=== PATIENT | male | born 1950 | race Caucasian/White ===

== ENCOUNTER 2020-03-05 16:00 | Emergency (ER) | payer OTHER ==
[~2020-03-05] VITALS: Ht 175.3 cm; Wt 80.7 kg
[~2020-03-05 16:00] MED LIST: ATOR20 PO; INSLIS75I SC; MUSCLE RELAXER
[2020-03-05] MEDS ORDERED: Zovirax800 MG PO (16:34)
[2020-03-05] MEDS ORDERED: CEPH500 PO (16:34)
== END 2020-03-05 16:55 | disposition home or self-care (01) ==
LOC: ER 16:00
DX: A46 Erysipelas (principal); F17.210 Nicotine dependence, cigarettes, uncomplicated
CPT/HCPCS: 99283; A9270-GY

== ENCOUNTER → 2021-12-17 | Outpatient (CLI) | payer OTHER ==
[~2021-12-17] MED LIST changes: +CARV3.125 PO; +CEPH500 PO; +Lisinopril2.5 MG PO; +PRAV20 PO; +PRAVASTATIN SOD20 MG PO; +SPIR25 PO; +XARELTO20 MG PO; +Zovirax800 MG PO
[2021-12-17 13:48] LABS: BASOPHILS ABSOLUTE AUTO 0.07 K/mm3 (0.00-0.23); BASOPHILS PERCENT AUTO 1 % (0-2); EOSINOPHILS PERCENT AUTO 1 % (0-6); Hematocrit 36.2 % (37.0-53.0); Hemoglobin 12.8 g/dL (13.5-17.5); IMMATURE GRAN ABSOLUTE AUTO 0.11 K/mm3 (0.00-0.10); IMMATURE GRAN PERCENT AUTO 1 % (0-1); LYMPHOCYTES ABSOLUTE AUTO 0.91 K/mm3 (0.84-5.20); LYMPHOCYTES PERCENT AUTO 10 % (21-46); MONOCYTES ABSOLUTE AUTO 0.94 K/mm3 (0.16-1.47); MONOCYTES PERCENT AUTO 10 % (4-13); Mean Corpuscular HGB 28.4 pg (26.0-34.0); Mean Corpuscular HGB Conc 35.4 g/dL (31.5-36.5); Mean Corpuscular Volume 80 fL (80-100); Mean Platelet Volume 9.1 fL (9.1-12.4); NEUTROPHILS ABSOLUTE AUTO 6.89 K/mm3 (1.96-9.15); NEUTROPHILS PERCENT AUTO 76 % (41-73); Platelet Count 321 K/mm3 (150-400); RDW Coefficient Variation 13.3 % (11.7-14.2); RDW Standard Deviation 37.9 fL (35.1-46.3); Red Blood Cell Count 4.51 M/mm3 (4.30-5.90); White Blood Cell Count 9.02 K/mm3 (4.00-11.30)
[2021-12-17 14:06] LABS: Albumin, Blood 3.2 g/dL (3.4-5.0); Albumin/Globulin Ratio 0.8 (0.8-1.8); Bilirubin, Total 1.4 mg/dL (0.1-1.0); Bun/Creatinine Ratio 12.9 (12.0-20.0); Calcium, Blood 8.3 mg/dL (8.5-10.1); Creatinine, Blood 1.4 mg/dL (0.60-1.20); Globulin, Blood 3.8 g/dL (2.2-4.0); Potassium, Blood 4.9 mmol/L (3.5-5.5)
== END | disposition home or self-care (01) ==
LOC: LAB SHORT 13:38 → LAB 13:38
PROVIDERS: Physician Assistant
DX: R06.00 Dyspnea, unspecified (principal)
CPT/HCPCS: 80053; 84484; 85025; 85379

== ENCOUNTER 2022-03-18 14:53 | Emergency (ER) | payer OTHER ==
[~2022-03-18] VITALS: Ht 175.3 cm; Wt 72.6 kg
[2022-03-18 15:19] LABS: BASOPHILS ABSOLUTE AUTO 0.07 K/mm3 (0.00-0.23); BASOPHILS PERCENT AUTO 1 % (0-2); EOSINOPHILS ABSOLUTE AUTO 0.12 K/mm3 (0.00-0.68); EOSINOPHILS PERCENT AUTO 2 % (0-6); Hematocrit 45.2 % (37.0-53.0); Hemoglobin 15.2 g/dL (13.5-17.5); IMMATURE GRAN ABSOLUTE AUTO 0.01 K/mm3 (0.00-0.10); IMMATURE GRAN PERCENT AUTO 0 % (0-1); LYMPHOCYTES ABSOLUTE AUTO 1.44 K/mm3 (0.84-5.20); LYMPHOCYTES PERCENT AUTO 28 % (21-46); MONOCYTES ABSOLUTE AUTO 0.54 K/mm3 (0.16-1.47); MONOCYTES PERCENT AUTO 11 % (4-13); Mean Corpuscular HGB 27.2 pg (26.0-34.0); Mean Corpuscular HGB Conc 33.6 g/dL (31.5-36.5); Mean Corpuscular Volume 81 fL (80-100); Mean Platelet Volume 10.3 fL (9.1-12.4); NEUTROPHILS ABSOLUTE AUTO 2.93 K/mm3 (1.96-9.15); NEUTROPHILS PERCENT AUTO 57 % (41-73); Platelet Count 198 K/mm3 (150-400); RDW Coefficient Variation 22.5 % (11.7-14.2); Red Blood Cell Count 5.58 M/mm3 (4.30-5.90); White Blood Cell Count 5.11 K/mm3 (4.00-11.30)
[2022-03-18 15:47] LABS: Albumin, Blood 3.2 g/dL (3.4-5.0); Albumin/Globulin Ratio 0.8 (0.8-1.8); Bilirubin, Total 4.3 mg/dL (0.1-1.0); Bun/Creatinine Ratio 14.8 (12.0-20.0); Calcium, Blood 9.4 mg/dL (8.5-10.1); Creatinine, Blood 1.22 mg/dL (0.60-1.20); Globulin, Blood 4.2 g/dL (2.2-4.0); Potassium, Blood 3.6 mmol/L (3.5-5.5); Total Protein, Blood 7.4 g/dL (6.4-8.2)
[2022-03-18] MEDS ORDERED: FURO20 PO (18:11)
== END 2022-03-18 18:30 | disposition home or self-care (01) ==
LOC: ER 14:53
PROVIDERS: Emergency Medicine; Physician Assistant
DX: I11.0 Hypertensive heart disease with heart failure (principal); I50.9 Heart failure, unspecified; R17 Unspecified jaundice; E78.5 Hyperlipidemia, unspecified; Z86.73 Personal history of transient ischemic attack (TIA), and cerebral infarction without residual deficits; Z79.899 Other long term (current) drug therapy; Z87.891 Personal history of nicotine dependence; Z79.01 Long term (current) use of anticoagulants
CPT/HCPCS: 71045; 76705; 80053; 83690; 83880; 84484; 85025; 93005; 93010; 99285-25

== ENCOUNTER 2022-03-25 18:11 | Inpatient (IN) | payer OTHER ==
[~2022-03-25] VITALS: Ht 175.3 cm; Wt 69.7 kg
[~2022-03-25 18:11] MED LIST changes: +FURO20 PO; -PRAV20 PO; +PRAVASTATIN SOD40 MG PO
[2022-03-25 19:05] LABS: BASOPHILS ABSOLUTE AUTO 0.08 K/mm3 (0.00-0.23); BASOPHILS PERCENT AUTO 2 % (0-2); EOSINOPHILS ABSOLUTE AUTO 0.15 K/mm3 (0.00-0.68); EOSINOPHILS PERCENT AUTO 3 % (0-6); Hematocrit 44.3 % (37.0-53.0); Hemoglobin 15.2 g/dL (13.5-17.5); IMMATURE GRAN ABSOLUTE AUTO 0.01 K/mm3 (0.00-0.10); IMMATURE GRAN PERCENT AUTO 0 % (0-1); LYMPHOCYTES ABSOLUTE AUTO 1.43 K/mm3 (0.84-5.20); LYMPHOCYTES PERCENT AUTO 32 % (21-46); MONOCYTES ABSOLUTE AUTO 0.48 K/mm3 (0.16-1.47); MONOCYTES PERCENT AUTO 11 % (4-13); Mean Corpuscular HGB 27.3 pg (26.0-34.0); Mean Corpuscular HGB Conc 34.3 g/dL (31.5-36.5); Mean Corpuscular Volume 80 fL (80-100); Mean Platelet Volume 9.8 fL (9.1-12.4); NEUTROPHILS ABSOLUTE AUTO 2.33 K/mm3 (1.96-9.15); NEUTROPHILS PERCENT AUTO 52 % (41-73); Platelet Count 120 K/mm3 (150-400); RDW Coefficient Variation 22.7 % (11.7-14.2); RDW Standard Deviation 64.7 fL (35.1-46.3); Red Blood Cell Count 5.56 M/mm3 (4.30-5.90); White Blood Cell Count 4.48 K/mm3 (4.00-11.30)
[2022-03-25 19:33] LABS: Albumin, Blood 3.2 g/dL (3.4-5.0); Albumin/Globulin Ratio 0.8 (0.8-1.8); Bun/Creatinine Ratio 16.4 (12.0-20.0); Calcium, Blood 9.3 mg/dL (8.5-10.1); Creatinine, Blood 1.1 mg/dL (0.60-1.20); Globulin, Blood 3.8 g/dL (2.2-4.0); Magnesium, Blood 1.9 mg/dL (1.6-2.4); Potassium, Blood 3.1 mmol/L (3.5-5.5)
[2022-03-26 02:06] LABS: BASOPHILS ABSOLUTE AUTO 0.08 K/mm3 (0.00-0.23); BASOPHILS PERCENT AUTO 2 % (0-2); EOSINOPHILS ABSOLUTE AUTO 0.17 K/mm3 (0.00-0.68); EOSINOPHILS PERCENT AUTO 4 % (0-6); Hematocrit 44.5 % (37.0-53.0); Hemoglobin 15.2 g/dL (13.5-17.5); IMMATURE GRAN ABSOLUTE AUTO 0.02 K/mm3 (0.00-0.10); IMMATURE GRAN PERCENT AUTO 1 % (0-1); LYMPHOCYTES ABSOLUTE AUTO 1.23 K/mm3 (0.84-5.20); LYMPHOCYTES PERCENT AUTO 28 % (21-46); MONOCYTES ABSOLUTE AUTO 0.41 K/mm3 (0.16-1.47); MONOCYTES PERCENT AUTO 9 % (4-13); Mean Corpuscular HGB 27.4 pg (26.0-34.0); Mean Corpuscular HGB Conc 34.2 g/dL (31.5-36.5); Mean Corpuscular Volume 80 fL (80-100); Mean Platelet Volume 10.3 fL (9.1-12.4); NEUTROPHILS ABSOLUTE AUTO 2.48 K/mm3 (1.96-9.15); NEUTROPHILS PERCENT AUTO 57 % (41-73); Platelet Count 114 K/mm3 (150-400); RDW Coefficient Variation 22.6 % (11.7-14.2); RDW Standard Deviation 65.1 fL (35.1-46.3); Red Blood Cell Count 5.54 M/mm3 (4.30-5.90); White Blood Cell Count 4.39 K/mm3 (4.00-11.30)
[2022-03-26 02:25] LABS: Albumin/Globulin Ratio 0.8 (0.8-1.8); Bilirubin, Total 4.1 mg/dL (0.1-1.0); Bun/Creatinine Ratio 15.5 (12.0-20.0); Calcium, Blood 8.9 mg/dL (8.5-10.1); Creatinine, Blood 1.16 mg/dL (0.60-1.20); Globulin, Blood 3.6 g/dL (2.2-4.0); Potassium, Blood 3.2 mmol/L (3.5-5.5); Total Protein, Blood 6.6 g/dL (6.4-8.2)
--- NOTE | 2022-03-26 03:53 | NUR ---
PATIENT IS A&OX4, OOB INDEPENDENTLY IN ROOM TO BATHROOM. SOB WITH MINIMAL EXERTION OR CONVERSATION. URINE IS DARK ORANGE/BROWN. STATES LITTLE APPETITE OVER LAST FEW MONTHS DUE TO CHANGE IN TASTE AND LATELY SOB WHEN EATING. PATIENT WAS TAKEN OFF MAJORITY OF HIS MEDICATIONS BY HIS PCP DUE TO HYPOTENSION. STATES ONLY TWO HE IS TAKING AT HOME ARE LASIX AND 20MG XARELTO ONCE DAILY. NO COMPLAINTS OF CHEST PAIN OR PRESSURE. TRACE GENERALIZED EDEMA WITH DISTENDED NON PITTING ABDOMEN AND 2-3+ ANKLES AND FEET. PATIENT ASKING ABOUT REASON FOR NPO STATUS. TROPONINS OVERNIGHT WERE 248 IN ER, 260 AT MIDNIGHT AND 249 TWO HOURS LATER.
--- NOTE | 2022-03-26 08:00 | NUR ---
pt laying in bed asking about coffee but npo, call to Dr. Gonzales recieved diet order, he will review pt before I give po meds as he is hypotensive, pt is a/ox3, pleasant and cooperative with care, follows commands well, denies pain, states he is fine as long as he doesn't move, but becomes winded with any activity, currently on r/a, lungs are a bit wet, course, fine crackles in bases, hrr, tele in place running st with pac's per monitor, see strip, 2+edema noted to b/l le, btx4, abd flat soft nontender, voids without diff, skin jaundiced, no open areas, maew, up indep, pela, call light in reach.
[2022-03-26 11:40] LABS: International Normalized Ratio 2.08; Prothrombin Time Results 20.8 Sec (9.7-11.5)
[2022-03-26] MEDS ORDERED: FUROSEMIDE20 MG PO (13:13)
--- NOTE | 2022-03-26 18:41 | NUR ---
pt has been sob, helps to tripod, otherwise is struggling to breath, b/p 89/75 this evening, updated Dr. Chandra as he has lasix and aldactone due, he said to go ahead and give unless sbp is 85, rechecked after repositioning him, sbp was 102. son in room visiting, call light in reach.
[2022-03-26 20:41] LABS: International Normalized Ratio 2.55
[2022-03-26 20:44] LABS: Prothrombin Time Results 25.2 Sec (9.7-11.5)
[2022-03-27 05:47] LABS: BASOPHILS ABSOLUTE AUTO 0.11 K/mm3 (0.00-0.23); BASOPHILS PERCENT AUTO 3 % (0-2); EOSINOPHILS PERCENT AUTO 2 % (0-6); Hematocrit 46.7 % (37.0-53.0); Hemoglobin 15.7 g/dL (13.5-17.5); IMMATURE GRAN ABSOLUTE AUTO 0.02 K/mm3 (0.00-0.10); IMMATURE GRAN PERCENT AUTO 1 % (0-1); LYMPHOCYTES PERCENT AUTO 32 % (21-46); MONOCYTES PERCENT AUTO 11 % (4-13); Mean Corpuscular HGB 27.4 pg (26.0-34.0); Mean Corpuscular HGB Conc 33.6 g/dL (31.5-36.5); Mean Corpuscular Volume 81 fL (80-100); Mean Platelet Volume 9.8 fL (9.1-12.4); NEUTROPHILS ABSOLUTE AUTO 2.31 K/mm3 (1.96-9.15); NEUTROPHILS PERCENT AUTO 52 % (41-73); Platelet Count 119 K/mm3 (150-400); RDW Coefficient Variation 23.3 % (11.7-14.2); RDW Standard Deviation 66.9 fL (35.1-46.3); Red Blood Cell Count 5.74 M/mm3 (4.30-5.90); White Blood Cell Count 4.44 K/mm3 (4.00-11.30)
[2022-03-27 06:00] LABS: International Normalized Ratio 2.39; Prothrombin Time Results 23.7 Sec (9.7-11.5)
[2022-03-27 06:07] LABS: Albumin, Blood 3.4 g/dL (3.4-5.0); Albumin/Globulin Ratio 0.9 (0.8-1.8); Bun/Creatinine Ratio 16.9 (12.0-20.0); Calcium, Blood 9.4 mg/dL (8.5-10.1); Creatinine, Blood 1.18 mg/dL (0.60-1.20); Globulin, Blood 3.7 g/dL (2.2-4.0); Potassium, Blood 4.1 mmol/L (3.5-5.5); Total Protein, Blood 7.1 g/dL (6.4-8.2)
--- NOTE | 2022-03-27 07:39 | NUR ---
PATIENT HAD A FITFULL REST OVERNIGHT. HE WAS VERY UNCOMFORTABLE DUE TO HIS DIFFICULTY BREATHING AND DISTENDED ABDOMEN. MD WAS NOTIFIED AND IV BENEDRYL WAS ORDERED TO HELP PATIENT REST. O2 SATURATIONS REMAINED BETWEEN 88 - 93% ON ROOM AIR, BLOOD PRESSURES REMAINED JUST ABOVE 100 UNTIL AROUND 0530 WHEN IT WAS 98/50. TELE : A FIB/SR 90'S TO LOW 100'S. PATIENT IS ANXIOUS FOR THORACENTESIS ON MONDAY. HEPARIN REMAINS UNSTARTED PER PHARMACY ORDER PATIENTS PT WAS STILL TOO HIGH. AWAITING THEIR ORDER TO START
--- NOTE | 2022-03-27 08:00 | NUR ---
pt laying in bed with eyes closed, wakes easily, not as sob as he was last night, lungs are course t/o, resp even and unlabored at rest, gets sob with activity, states he slept like a log last night, a/ox3, pleasant and cooperative with care, follows commands well, denies pain, currently on r/a, no cough noted, hrr, heart sounds are distant, piv to rac site is clear and patent, bt x4, hypoactive, voids via urinal, skin c/w/d frail, maew, but very weak, roya, call light in reach.
--- NOTE | 2022-03-27 11:06 | NUR ---
Spoke with Dr Gonzales prior to Pt visit. Pt may benefit from goals of care discussion including considering hospice. Pt resting in bed and is A&OX4. Pt reports dyspnea with exertion and speaking. Pt becomes dyspneic during visit as evidenced by work of breathing and ability to only speak in 1-2 word sentences. Pt denies pain at this time. Reviewed plan of care with Pt. Engaged in therapeutic discussion regarding goals of care. Pt reports living at home with his son in [facility]. He also reports having 2 daughter, one lives in [place] and the other in [place]. Pt reports at baseline is independent of his ADLs. Pt reports losing his spouse 5 years ago to cancer. Gentle education on disease process including trajectory. Discussed options including considering hospice with Pt confirming understanding stating his was on hospice. Also discussed [facility]. Pt does not engaged much in conversation as he is focused on his dyspnea. He reports plan to discuss options further with his son. Pt also agreeable to take POLST home and discussed with son. Received verbal permission from Pt to call his son Nathaniel to relay conversation that took place. Ended visit to allow Pt to rest. Attempted to call Pt's son Nathaniel. Left message on voicemail with request for a return phone call. Palliative Care will remain available.
--- NOTE | 2022-03-27 11:41 | NUR ---
Late Entry from previous visit note. Received return call from Pt's son Nathaniel. Relayed conversation that took place with Pt. Reviewed current plan of care. Nathaniel expresses appreciation and reports no other concerns at this time.
--- NOTE | 2022-03-27 18:12 | NUR ---
pt resting in bed most of the day, is breathing some easier than yesterday, sons in room, b/p remains soft. plan for thora tomorrow. call light in reach.
[2022-03-28 04:43] LABS: BASOPHILS ABSOLUTE AUTO 0.11 K/mm3 (0.00-0.23); BASOPHILS PERCENT AUTO 2 % (0-2); EOSINOPHILS PERCENT AUTO 4 % (0-6); Hematocrit 43.7 % (37.0-53.0); Hemoglobin 14.8 g/dL (13.5-17.5); IMMATURE GRAN ABSOLUTE AUTO 0.02 K/mm3 (0.00-0.10); IMMATURE GRAN PERCENT AUTO 0 % (0-1); LYMPHOCYTES ABSOLUTE AUTO 1.55 K/mm3 (0.84-5.20); LYMPHOCYTES PERCENT AUTO 32 % (21-46); MONOCYTES PERCENT AUTO 10 % (4-13); Mean Corpuscular HGB 27.6 pg (26.0-34.0); Mean Corpuscular HGB Conc 33.9 g/dL (31.5-36.5); Mean Corpuscular Volume 82 fL (80-100); Mean Platelet Volume 9.7 fL (9.1-12.4); NEUTROPHILS ABSOLUTE AUTO 2.48 K/mm3 (1.96-9.15); NEUTROPHILS PERCENT AUTO 51 % (41-73); Platelet Count 107 K/mm3 (150-400); RDW Coefficient Variation 23.1 % (11.7-14.2); RDW Standard Deviation 67.2 fL (35.1-46.3); Red Blood Cell Count 5.36 M/mm3 (4.30-5.90); White Blood Cell Count 4.86 K/mm3 (4.00-11.30)
[2022-03-28 05:00] LABS: Albumin, Blood 3.6 g/dL (3.4-5.0); Albumin/Globulin Ratio 1.2 (0.8-1.8); Bilirubin, Total 5.2 mg/dL (0.1-1.0); Bun/Creatinine Ratio 18.5 (12.0-20.0); Calcium, Blood 9.6 mg/dL (8.5-10.1); Creatinine, Blood 1.24 mg/dL (0.60-1.20); Globulin, Blood 3.1 g/dL (2.2-4.0); Potassium, Blood 4.2 mmol/L (3.5-5.5); Total Protein, Blood 6.7 g/dL (6.4-8.2)
[2022-03-28 05:03] LABS: International Normalized Ratio 2.2; Prothrombin Time Results 21.9 Sec (9.7-11.5)
--- NOTE | 2022-03-28 06:25 | NUR ---
SHIFT SUMMARY NO ACUTE CHANGES TO PT CONDITION. PT SLEPT MOST OF THE NIGHT. UP THIS AM TO BEDSIDE CHAIR AND THEN WENT BACK TO BED. PT HAS NO COMPLAINTS AT THIS TIME. CALL LIGHT IS WITHIN HIS REACH.
--- NOTE | 2022-03-28 08:00 | NUR ---
pt laying in bed awake a/ox3, pleasant and cooperative with care, follows commands well, denies pain, states he slept hard last night, lungs are a bit course, very dim on left base, resp even and unlabored at rest, periodically gets very sob, and panics because he can't cath his breath, sitting up helps, on r/a, sats are in the mid 's, hrr, runs sr to st per montior see strip, 2+ edema to b/l le, is some better today as he has мария hose in place, b/p in the 's, piv to rac site is clear and patent, btx4 hypoactive, voids without diff, skin is sallow, but intact, maew, up indep, roya, call light in reach.
[2022-03-28 14:07] LABS: International Normalized Ratio 1.83
[2022-03-28 14:42] LABS: Prothrombin Time Results 18.5 Sec (9.7-11.5)
--- NOTE | 2022-03-28 18:47 | NUR ---
pt had a unit of ffp for high inr, at recheck it was under 2 so radiology was notified and Dr. Dupont, had a thorensentesis, pt reports 1 liter was removed, he reports breathing much easier, and feels relief. v.s. in the 's, son in room with him, no further acute changes this shift, call light in reach.
--- NOTE | 2022-03-29 04:31 | NUR ---
SHIFT SUMMARY ADMITTED FOR CHF EXACERBATION. DNR CODE. FOUND TO HAVE BILAT PE'S. EF IS 15-20%. HYPOTENSION NOTED. TELEMETRY: NSR @ 73 BPM. PT IS A&O X4, ON RA. HE GOT ONE UNIT OF FFP ON PREVIOUS SHIFT. CARDIAC DIET. 1 ASSIST. 2+ BLE EDEMA. WE ARE DIURESING HIM. THORACENTESIS PERFORMED ON PREVIOUS SHIFT REMOVED 1 LITER OF FLUID.
[2022-03-29 04:41] LABS: BASOPHILS ABSOLUTE AUTO 0.09 K/mm3 (0.00-0.23); BASOPHILS PERCENT AUTO 2 % (0-2); EOSINOPHILS PERCENT AUTO 4 % (0-6); Hematocrit 41.9 % (37.0-53.0); Hemoglobin 14.1 g/dL (13.5-17.5); IMMATURE GRAN ABSOLUTE AUTO 0.03 K/mm3 (0.00-0.10); IMMATURE GRAN PERCENT AUTO 1 % (0-1); LYMPHOCYTES ABSOLUTE AUTO 1.24 K/mm3 (0.84-5.20); LYMPHOCYTES PERCENT AUTO 27 % (21-46); MONOCYTES ABSOLUTE AUTO 0.64 K/mm3 (0.16-1.47); MONOCYTES PERCENT AUTO 14 % (4-13); Mean Corpuscular HGB Conc 33.7 g/dL (31.5-36.5); Mean Corpuscular Volume 83 fL (80-100); Mean Platelet Volume 10.1 fL (9.1-12.4); NEUTROPHILS ABSOLUTE AUTO 2.38 K/mm3 (1.96-9.15); NEUTROPHILS PERCENT AUTO 52 % (41-73); Platelet Count 108 K/mm3 (150-400); RDW Coefficient Variation 23.6 % (11.7-14.2); RDW Standard Deviation 69.3 fL (35.1-46.3); Red Blood Cell Count 5.04 M/mm3 (4.30-5.90); White Blood Cell Count 4.58 K/mm3 (4.00-11.30)
[2022-03-29 04:55] LABS: International Normalized Ratio 1.92; Prothrombin Time Results 19.3 Sec (9.7-11.5)
[2022-03-29 05:10] LABS: Albumin, Blood 3.5 g/dL (3.4-5.0); Albumin/Globulin Ratio 1.2 (0.8-1.8); Bilirubin, Total 5.1 mg/dL (0.1-1.0); Bun/Creatinine Ratio 20.8 (12.0-20.0); Calcium, Blood 9.6 mg/dL (8.5-10.1); Creatinine, Blood 1.3 mg/dL (0.60-1.20); Globulin, Blood 2.8 g/dL (2.2-4.0); Magnesium, Blood 1.8 mg/dL (1.6-2.4); Potassium, Blood 4.2 mmol/L (3.5-5.5); Total Protein, Blood 6.3 g/dL (6.4-8.2)
[2022-03-29] MEDS ORDERED: AZIT250 PO (11:30)
[2022-03-29] MEDS ORDERED: CARV3.125 PO (11:33)
[2022-03-29] MEDS ORDERED: LISI5 PO (11:35)
[2022-03-29] MEDS ORDERED: POTA10T PO (11:36)
[2022-03-29] MEDS ORDERED: PRAV20 PO (11:37)
[2022-03-29] MEDS ORDERED: SPIR25 PO (11:38)
--- NOTE | 2022-03-29 14:16 | NUR ---
PT DISCHARGED HOME AT 1215 WITH ALL PAPERWORK REVIEWED AND EDUCATIONAL MATERIAL SENT WITH PT.NO DISTRESS NOTED. PT AOX4 AND COOPERATIVE OF ALL CARE. PT ABLE TO AMUBULATE INDEPENDENTLY. PT ESCORTED OUT VIA WHEEL CHAIR WITH ALL PERSONAL BELONGINGS VIA WHEEL CHAIR.
== END 2022-03-29 12:12 | disposition home health service (06) | DRG 291 ==
LOC: ER 18:11 → MEDS 18:12
PROVIDERS: Family Medicine; Hospitalist; Physician Assistant; ADMIT Internal Medicine
PROC: 0W993ZZ Drainage of Right Pleural Cavity, Percutaneous Approach (ICD-10-PCS; principal; 2022-03-28)
DX: I11.0 Hypertensive heart disease with heart failure (principal); I50.23 Acute on chronic systolic (congestive) heart failure; I24.8 Other forms of acute ischemic heart disease; Q21.1 Atrial septal defect; Z66 Do not resuscitate; E87.6 Hypokalemia; I95.9 Hypotension, unspecified; I25.10 Atherosclerotic heart disease of native coronary artery without angina pectoris; Z86.16 Personal history of COVID-19; E78.5 Hyperlipidemia, unspecified; J44.9 Chronic obstructive pulmonary disease, unspecified; I42.8 Other cardiomyopathies; Z86.73 Personal history of transient ischemic attack (TIA), and cerebral infarction without residual deficits; Z79.01 Long term (current) use of anticoagulants; Z79.899 Other long term (current) drug therapy; Z87.891 Personal history of nicotine dependence
CPT/HCPCS: 32555; 36415; 71045; 71046; 80053; 83735; 83880; 84484; 85025; 85610; 85730; 86900; 86901; 93005; 93010; 93306; 94640; 94664; 94762; 96374; 99285-25; A9270; J1200; J1940; J3430; P9046; P9059

== ENCOUNTER 2022-10-29 13:08 | Inpatient (IN) | payer OTHER ==
[~2022-10-29] VITALS: Ht 175.3 cm; Wt 64.5 kg
[~2022-10-29 13:08] MED LIST changes: +AZIT250 PO; +FUROSEMIDE20 MG PO; +LISI5 PO; +POTA10T PO; +PRAV20 PO
[2022-10-29 13:37] LABS: BASOPHILS ABSOLUTE AUTO 0.13 K/mm3 (0.00-0.23); BASOPHILS PERCENT AUTO 2 % (0-2); EOSINOPHILS PERCENT AUTO 12 % (0-6); Hematocrit 40.4 % (37.0-53.0); Hemoglobin 13.6 g/dL (13.5-17.5); IMMATURE GRAN ABSOLUTE AUTO 0.04 K/mm3 (0.00-0.10); IMMATURE GRAN PERCENT AUTO 1 % (0-1); LYMPHOCYTES ABSOLUTE AUTO 1.87 K/mm3 (0.84-5.20); LYMPHOCYTES PERCENT AUTO 24 % (21-46); MONOCYTES ABSOLUTE AUTO 1.02 K/mm3 (0.16-1.47); MONOCYTES PERCENT AUTO 13 % (4-13); Mean Corpuscular HGB 28.5 pg (26.0-34.0); Mean Corpuscular HGB Conc 33.7 g/dL (31.5-36.5); Mean Corpuscular Volume 85 fL (80-100); Mean Platelet Volume 9.3 fL (9.1-12.4); NEUTROPHILS ABSOLUTE AUTO 3.76 K/mm3 (1.96-9.15); NEUTROPHILS PERCENT AUTO 49 % (41-73); Platelet Count 143 K/mm3 (150-400); RDW Coefficient Variation 17.9 % (11.7-14.2); RDW Standard Deviation 53.2 fL (35.1-46.3); Red Blood Cell Count 4.77 M/mm3 (4.30-5.90); White Blood Cell Count 7.72 K/mm3 (4.00-11.30)
[2022-10-29 13:56] LABS: Albumin, Blood 2.9 g/dL (3.4-5.0); Albumin/Globulin Ratio 0.7 (0.8-1.8); Bilirubin, Total 3.8 mg/dL (0.1-1.0); Bun/Creatinine Ratio 21.7 (12.0-20.0); Creatinine, Blood 1.06 mg/dL (0.60-1.20); Globulin, Blood 4.3 g/dL (2.2-4.0); Potassium, Blood 4.5 mmol/L (3.5-5.5); Total Protein, Blood 7.2 g/dL (6.4-8.2)
[2022-10-29] MEDS ORDERED: LEVSOD25 PO (19:16)
[2022-10-29] MEDS ORDERED: IPRATROPIUM BRO30 ML NS (19:16)
[2022-10-29] MEDS ORDERED: FARXIGA10 MG PO (19:16)
--- NOTE | 2022-10-30 03:54 | NUR ---
PATIENT ARRIVED ON UNIT AT ABOUT 1999. AOX4. PLEASANT AND COOPERATIVE WITH CARE. 1 PERSON ASSIST. IV RIGHT AC. ROOM AIR. DNR. BLOOD PRESSURES HAVE BEEN RUNNING SOFT. ADMISSION PROCESS COMPLETED WITHOUT DIFFICULTY. PATIENT REFUSED SKIN ASSESSMENT OF LOWER BODY, SKIN ASSESSMENT OF UPPER BODY UNREMARKABLE. AFTER ADMISSION PROCESS PATIENT HAS BEEN ABLE TO SLEEP THROUGH REMAINDER OF SHIFT WITHOUT DIFFICULTY.
[2022-10-30 06:03] LABS: Hematocrit 39.7 % (37.0-53.0); Hemoglobin 13.9 g/dL (13.5-17.5); Mean Corpuscular HGB 28.9 pg (26.0-34.0); Mean Corpuscular Volume 83 fL (80-100); Mean Platelet Volume 8.6 fL (9.1-12.4); Platelet Count 144 K/mm3 (150-400); RDW Coefficient Variation 17.2 % (11.7-14.2); Red Blood Cell Count 4.81 M/mm3 (4.30-5.90); White Blood Cell Count 7.64 K/mm3 (4.00-11.30)
[2022-10-30 06:35] LABS: Bun/Creatinine Ratio 23.1 (12.0-20.0); Calcium, Blood 8.3 mg/dL (8.5-10.1); Creatinine, Blood 1.08 mg/dL (0.60-1.20); Free Thyroxine 1.33 ng/dL (0.70-1.60); Magnesium, Blood 1.8 mg/dL (1.6-2.4); Potassium, Blood 4.1 mmol/L (3.5-5.5); Thyroid Stimulating Hormone 4.16 uIU/mL (0.360-4.800)
--- NOTE | 2022-10-30 07:35 | NUR ---
INFORMED BY MANUFACTURING JOB TITLES OF BP OF 71/52 FOR PATIENT. UPON ASSESSMENT PATIENT WAS ASYMPTOMATIC. PT RECEIVED 500ML NS BOLUS THIS MORNING FOR SBP OF 85. DR ASHBY NOTIFIED OF FINDINGS. ORDERS TO CONTINUE TO MONITOR RECEIVED. RECHECK BP
--- NOTE | 2022-10-30 17:18 | NUR ---
SHIFT SUMMARY NO ACUTE CHANGES DURING SHIFT. PT ALERT AND ORIENTED, CALLS APPROPRIATELY. PT RECEIVED 500ML NS BOLUS IN AM FOR SBP IN 80'S, TOLERATED, SBP UP TO 90'S. CONTINUE TO MONITOR. PT REMAINS ON RA, NO SOB. PT X 1 ASSIST TO BATHROOM. N/V/D SUBSIDED. WILL CONTINUE TO MONITOR. CALL LIGHT WITHIN REACH.
--- NOTE | 2022-10-31 04:00 | NUR ---
SHIFT UNREMARKABLE. PATIENT SLEPT THROUGH MOST OF SHIFT AFTER EVENING SHIFT ASSESSMENT. DENIED ANY PAIN OR DISCOMFORT. BLOOD PRESSURES CONTINUE TO RUN SOFT. SBP UP TO 85 FROM LOW OF 71 DURING DAY SHIFT. PROVIDER AWARE, NOTE INDICATES TO CONTINUE MONITORING. WILL NOTIFY HOSPITALIST SHOULD BP AGAIN DECREASE. CALL LIGHT LEFT WITHIN REACH.
--- NOTE | 2022-10-31 17:44 | NUR ---
SHIFT SUMMARY NO ACUTE CHANGES DURING SHIFT. PT ALERT AND ORIENTED, CALLS APPROPRIATELY. PT REMAINS ON RA, INDEPENDENT IN ROOM. PT TO START LOVENOX AND COUMADIN. SBP REMAINS 80-90'S, PT REMAINS ASYMPTOMATIC. NO C/O PAIN.FAMILY AT BEDSIDE. WILL CONTINUE TO MONITOR. CALL LIGHT WITHIN REACH.
[2022-10-31 17:54] LABS: International Normalized Ratio 1.97; Prothrombin Time Results 19.8 Sec (9.7-11.5)
--- NOTE | 2022-10-31 19:07 | NUR ---
AWAKE, CHEERFULLY TALKING WITH VISITOR (AM RN VOICED FAMILY). DENIES PAIN. CALL LIGHT IN REACH.
--- NOTE | 2022-11-01 04:33 | NUR ---
PERFORMANCE IMPROVEMENT DIRECTOR SUMMARY BP LOW NORMAL, OTHERWISE VSS. LOVENOX STARTED THIS SHIFT, AM RN REPORTED ANTICOAGULANT CHANGED TO ADDRESS CURRENT THROMBUS NOT ADDRESSED WITH PREVIOUS MED. ALERT TO QUESTIONS ASKED. DENIED PAIN AND LOSS OF FEELING. AT HS WAS C/O FEELING COLD, WARM BLANKETS APPLIED AND HAS BEEN RESTING QUIETLY WITH FEW INTERRUPTION SINCE. CALL LIGHT IN REACH. WILL CONTINUE TO MONITOR.
[2022-11-01 05:22] LABS: International Normalized Ratio 1.75; Prothrombin Time Results 17.7 Sec (9.7-11.5)
[2022-11-01 07:55] LABS: BASOPHILS PERCENT AUTO 2 % (0-2); EOSINOPHILS ABSOLUTE AUTO 1.77 K/mm3 (0.00-0.68); EOSINOPHILS PERCENT AUTO 27 % (0-6); Hematocrit 35.5 % (37.0-53.0); Hemoglobin 12.3 g/dL (13.5-17.5); IMMATURE GRAN ABSOLUTE AUTO 0.02 K/mm3 (0.00-0.10); IMMATURE GRAN PERCENT AUTO 0 % (0-1); LYMPHOCYTES ABSOLUTE AUTO 1.13 K/mm3 (0.84-5.20); LYMPHOCYTES PERCENT AUTO 17 % (21-46); MONOCYTES ABSOLUTE AUTO 0.62 K/mm3 (0.16-1.47); MONOCYTES PERCENT AUTO 9 % (4-13); Mean Corpuscular HGB 28.7 pg (26.0-34.0); Mean Corpuscular HGB Conc 34.6 g/dL (31.5-36.5); Mean Corpuscular Volume 83 fL (80-100); Mean Platelet Volume 9.1 fL (9.1-12.4); NEUTROPHILS ABSOLUTE AUTO 2.97 K/mm3 (1.96-9.15); NEUTROPHILS PERCENT AUTO 45 % (41-73); Platelet Count 151 K/mm3 (150-400); RDW Coefficient Variation 17.5 % (11.7-14.2); RDW Standard Deviation 52.1 fL (35.1-46.3); Red Blood Cell Count 4.28 M/mm3 (4.30-5.90); White Blood Cell Count 6.61 K/mm3 (4.00-11.30)
[2022-11-01 08:09] LABS: Albumin, Blood 2.7 g/dL (3.4-5.0); Albumin/Globulin Ratio 0.7 (0.8-1.8); Bilirubin, Total 2.1 mg/dL (0.1-1.0); Bun/Creatinine Ratio 21.5 (12.0-20.0); Calcium, Blood 8.2 mg/dL (8.5-10.1); Creatinine, Blood 1.21 mg/dL (0.60-1.20); Globulin, Blood 4.1 g/dL (2.2-4.0); Potassium, Blood 4.6 mmol/L (3.5-5.5); Total Protein, Blood 6.8 g/dL (6.4-8.2)
--- NOTE | 2022-11-01 17:52 | NUR ---
SHIFT SUMMARY: PT ALERT AND ORIENTED X4. PT WAS PLEASANT AND COOPERATIVE THROUGHOUT THE SHIFT. PT WAS ANXIOUS THIS MORNING TO BE ABLE TO GO HOME BUT EXPLAINED TO PT THAT DECISION WAS UP TO THE DOCTOR. PT UNDERSTOOD AND HAS BEEN CALM AND COOPERATIVE SINCE SINCE. NEW ORDER FOR HYDROCOTISONE IV Q6. PT TOLERATING WELL AND HAS AN IMPROVED BLOOD PRESSURE THAN HAS BEEN PREVIOUSLY. PT HAS NOT C/O PAIN OR N/V THIS SHIFT. CALL LIGHT IN REACH. WILL CONTINUE TO MONITOR.
--- NOTE | 2022-11-02 06:14 | NUR ---
FIELD TRAINING AGENT SUMMARY NO ACUTE EVENTS. PT A/OX4. PLEASANT AND COOPERAITVE. PT WAS WAKEFUL T/O MOST OF THE NIGHT WITH PERIODS OF RET. PT REPORTS COUGHING KEEPING HIM UP; CALL T/SECURITY SYSTEMS TECHNICIAN DR--NEW ORDER F/10ML ROBITUSSIN Q6 PRN. SBP 113 AND 103. PT C/O SORE THROAT T/O THE NIGHT; REPORTS STARTED AFTER RCVD BREATHING TREATMENTS. ADVISED W/PASS ON TO DAY SHIFT T/REVIEW. PT ANXIOUS TO GO HOME; ASKED IF HE WOULD CONTINUE TAKING HOME BLOOD PRESSURE MEDS. ADVISED PT WOULD GO HOME WITH NEW INSTRUCTIONS. PT EDUCATION ON IMPORTANCE OF CHECKING BLOOD PRESSURE AT HOME. PT STATES HAS HOME BLOOD PRESSUE DEVICE. PT ABLE TO MAKE NEEDS KNOWN. CALL LIGHT ACCESSIBLE. BED LOCKED/LOW.
[2022-11-02 07:42] LABS: BASOPHILS ABSOLUTE AUTO 0.02 K/mm3 (0.00-0.23); BASOPHILS PERCENT AUTO 0 % (0-2); EOSINOPHILS ABSOLUTE AUTO 0.01 K/mm3 (0.00-0.68); EOSINOPHILS PERCENT AUTO 0 % (0-6); Hematocrit 40.7 % (37.0-53.0); IMMATURE GRAN ABSOLUTE AUTO 0.03 K/mm3 (0.00-0.10); IMMATURE GRAN PERCENT AUTO 1 % (0-1); LYMPHOCYTES ABSOLUTE AUTO 0.89 K/mm3 (0.84-5.20); LYMPHOCYTES PERCENT AUTO 18 % (21-46); MONOCYTES ABSOLUTE AUTO 0.27 K/mm3 (0.16-1.47); MONOCYTES PERCENT AUTO 6 % (4-13); Mean Corpuscular HGB 28.6 pg (26.0-34.0); Mean Corpuscular HGB Conc 34.4 g/dL (31.5-36.5); Mean Corpuscular Volume 83 fL (80-100); Mean Platelet Volume 9.3 fL (9.1-12.4); NEUTROPHILS ABSOLUTE AUTO 3.65 K/mm3 (1.96-9.15); NEUTROPHILS PERCENT AUTO 75 % (41-73); Platelet Count 163 K/mm3 (150-400); RDW Coefficient Variation 17.9 % (11.7-14.2); RDW Standard Deviation 51.5 fL (35.1-46.3); White Blood Cell Count 4.87 K/mm3 (4.00-11.30)
[2022-11-02 07:57] LABS: International Normalized Ratio 1.69; Prothrombin Time Results 17.1 Sec (9.7-11.5)
[2022-11-02 08:00] LABS: Albumin/Globulin Ratio 0.7 (0.8-1.8); Bilirubin, Total 2.1 mg/dL (0.1-1.0); Bun/Creatinine Ratio 27.5 (12.0-20.0); Calcium, Blood 8.9 mg/dL (8.5-10.1); Creatinine, Blood 1.02 mg/dL (0.60-1.20); Globulin, Blood 4.5 g/dL (2.2-4.0); Potassium, Blood 4.9 mmol/L (3.5-5.5); Total Protein, Blood 7.5 g/dL (6.4-8.2)
--- NOTE | 2022-11-02 10:42 | NUR ---
Received report from ongoing nurse that patient would be discharge today. Pt decided he did not want to wait and would like to sign out AMA. All instructions given to patient. Son and daughter at bedside and made aware that patient wants to sign out AMA. Instructions given.
== END 2022-11-02 10:21 | disposition left against medical advice (07) | DRG 643 ==
LOC: ER 13:08 → MEDS 18:16 → ER 20:01 → MEDS 20:03 → ER 20:05 → MEDS 10-31 16:13
PROVIDERS: Internal Medicine; Nurse Practitioner Acute Care; Student in an Organized Health Care Education/Training Program; ADMIT Internal Medicine
DX: E27.40 Unspecified adrenocortical insufficiency (principal); I21.A1 Myocardial infarction type 2; E87.1 Hypo-osmolality and hyponatremia; Q25.0 Patent ductus arteriosus; I50.22 Chronic systolic (congestive) heart failure; Z66 Do not resuscitate; Z91.14 Patient's other noncompliance with medication regimen; I51.3 Intracardiac thrombosis, not elsewhere classified; Z51.5 Encounter for palliative care; K74.60 Unspecified cirrhosis of liver; I27.20 Pulmonary hypertension, unspecified; E78.5 Hyperlipidemia, unspecified; F17.210 Nicotine dependence, cigarettes, uncomplicated; J44.9 Chronic obstructive pulmonary disease, unspecified; I25.10 Atherosclerotic heart disease of native coronary artery without angina pectoris; I11.0 Hypertensive heart disease with heart failure; Z86.73 Personal history of transient ischemic attack (TIA), and cerebral infarction without residual deficits; Z79.899 Other long term (current) drug therapy
CPT/HCPCS: 36415; 71046; 80048; 80053; 80400; 82024; 82088; 82533; 83735; 83880; 84439; 84443; 84484; 85025; 85027; 85610; 93005; 93010; 94640; 94664; 94760; 96361; 96374; 96375; 99285-25; A9270; C8929; G0378; J1650; J1720; J1940; J2405; J7030; Q9957

== ENCOUNTER 2022-11-02 17:45 | Inpatient (IN) | payer OTHER ==
[~2022-11-02] VITALS: Ht 175.3 cm; Wt 68.0 kg
[~2022-11-02 17:45] MED LIST changes: +FARXIGA10 MG PO; +IPRATROPIUM BRO30 ML NS; +LEVSOD25 PO
[2022-11-02 18:21] LABS: BASOPHILS ABSOLUTE AUTO 0.01 K/mm3 (0.00-0.23); BASOPHILS PERCENT AUTO 0 % (0-2); EOSINOPHILS ABSOLUTE AUTO 0.01 K/mm3 (0.00-0.68); EOSINOPHILS PERCENT AUTO 0 % (0-6); Hematocrit 39.2 % (37.0-53.0); Hemoglobin 13.7 g/dL (13.5-17.5); IMMATURE GRAN ABSOLUTE AUTO 0.03 K/mm3 (0.00-0.10); IMMATURE GRAN PERCENT AUTO 1 % (0-1); LYMPHOCYTES ABSOLUTE AUTO 0.68 K/mm3 (0.84-5.20); LYMPHOCYTES PERCENT AUTO 10 % (21-46); MONOCYTES ABSOLUTE AUTO 0.45 K/mm3 (0.16-1.47); MONOCYTES PERCENT AUTO 7 % (4-13); Mean Corpuscular HGB Conc 34.9 g/dL (31.5-36.5); Mean Corpuscular Volume 83 fL (80-100); Mean Platelet Volume 9.3 fL (9.1-12.4); NEUTROPHILS ABSOLUTE AUTO 5.35 K/mm3 (1.96-9.15); NEUTROPHILS PERCENT AUTO 82 % (41-73); NRBC ABSOLUTE 0.02 K/mm3 (0.00-0.02); NRBC Auto 0.3 /100 WBC (0.0-0.2); Platelet Count 157 K/mm3 (150-400); RDW Coefficient Variation 17.9 % (11.7-14.2); RDW Standard Deviation 51.7 fL (35.1-46.3); Red Blood Cell Count 4.73 M/mm3 (4.30-5.90); White Blood Cell Count 6.53 K/mm3 (4.00-11.30)
[2022-11-02 18:37] LABS: Albumin, Blood 3.1 g/dL (3.4-5.0); Albumin/Globulin Ratio 0.7 (0.8-1.8); Bilirubin, Total 2.1 mg/dL (0.1-1.0); Bun/Creatinine Ratio 29.7 (12.0-20.0); Calcium, Blood 8.9 mg/dL (8.5-10.1); Creatinine, Blood 0.98 mg/dL (0.60-1.20); Globulin, Blood 4.4 g/dL (2.2-4.0); Potassium, Blood 5.7 mmol/L (3.5-5.5); Total Protein, Blood 7.5 g/dL (6.4-8.2)
--- NOTE | 2022-11-02 23:50 | NUR ---
ASSESSMENT/ASSUMED CARE/ADMIT PT ADMITTED TO PCU 7 AFTER LEAVING AMA TODAY. PT ARRIVED VIA WHEELCHAIR. TRANSFERED SELF TO BED. GAIT WEAK. PT A&O. DENIES PAIN OR DISCOMFORT. VSS. IV 20G TO RIGHT FOREARM SALINE LOCKED, SITE CLEAR, FLUSHED WITHOUT DIFFICULTY. SKNI PALE AND DRY. MAEW. HEART RATE REGULAR IN THE 90'S. BP STABLE. BT+ ABD SOFT AND NONTENDER. DENIES N/V. PT MOVING SELF AROUND IN BED AND SITTING ON EDGE OF BED. CONFIRMED DNR STATUS. APPLIED DNR ARM BAND TO LEFT WRIST.
[2022-11-03 03:42] LABS: BASOPHILS ABSOLUTE AUTO 0.01 K/mm3 (0.00-0.23); BASOPHILS PERCENT AUTO 0 % (0-2); EOSINOPHILS PERCENT AUTO 0 % (0-6); Hematocrit 37.6 % (37.0-53.0); Hemoglobin 13.1 g/dL (13.5-17.5); IMMATURE GRAN ABSOLUTE AUTO 0.04 K/mm3 (0.00-0.10); IMMATURE GRAN PERCENT AUTO 1 % (0-1); LYMPHOCYTES PERCENT AUTO 12 % (21-46); MONOCYTES ABSOLUTE AUTO 0.66 K/mm3 (0.16-1.47); MONOCYTES PERCENT AUTO 10 % (4-13); Mean Corpuscular HGB 28.5 pg (26.0-34.0); Mean Corpuscular HGB Conc 34.8 g/dL (31.5-36.5); Mean Corpuscular Volume 82 fL (80-100); Mean Platelet Volume 9.3 fL (9.1-12.4); NEUTROPHILS ABSOLUTE AUTO 5.03 K/mm3 (1.96-9.15); NEUTROPHILS PERCENT AUTO 77 % (41-73); NRBC ABSOLUTE 0.02 K/mm3 (0.00-0.02); NRBC Auto 0.3 /100 WBC (0.0-0.2); Platelet Count 152 K/mm3 (150-400); RDW Coefficient Variation 17.6 % (11.7-14.2); Red Blood Cell Count 4.59 M/mm3 (4.30-5.90); White Blood Cell Count 6.54 K/mm3 (4.00-11.30)
[2022-11-03 03:57] LABS: International Normalized Ratio 2.53
[2022-11-03 04:09] LABS: Bun/Creatinine Ratio 30.7 (12.0-20.0); Calcium, Blood 9.2 mg/dL (8.5-10.1); Creatinine, Blood 1.01 mg/dL (0.60-1.20); Potassium, Blood 4.8 mmol/L (3.5-5.5)
--- NOTE | 2022-11-03 13:35 | NUR ---
Pt known to this data analyst report writer from previous hospital stay. Pt is sitting on edge of bed and appears weak and frail. Pt difficult to understand. Pt denies pain and dyspnea at this time. Pt does report experiencing dyspnea when lying on his right side and breathing improves when on his left side. Continued supportive visit. Obtained verbal permission from Pt to call his son Nathaniel. Called and spoke with Pt's son Nathaniel. Reviewed plan of care and engaged in gentle discussion regarding advanced care planning. Discussed the importance of planning for the future and having routine conversations with PCP. Offered therapeutic listening and answered questions. Nathaniel expresses appreciation and requests for Pt's Primary RN to call him if Pt is D/C and to receive D/C instructions. Relayed son's request to Primary RN Dinora. Palliative Care will remain available
--- NOTE | 2022-11-03 16:34 | NUR ---
ASSUMING CARE THIS RN ASSUMING CARE OF PT AT THIS TIME UNTIL CHANGE OF SHIFT. PT A&O X4. VSS. MONITOR SHOWING SR, HR 90s. SPO2 > 92% ON RA. PT SITTING UP ON EDGE OF BED STATING "I JUST CAN'T BREATHE IF I LAY DOWN. THAT'S WHY I'M SITTING UP." PT SITTING UP ON EDGE OF BED. HEAD OF BED ELEVATED IT PT DECIDES TO LAY IN BED. CALL LIGHT IN REACH. PT DENIES NEEDS AT THIS TIME.
[2022-11-04 04:14] LABS: BASOPHILS ABSOLUTE AUTO 0.05 K/mm3 (0.00-0.23); BASOPHILS PERCENT AUTO 1 % (0-2); EOSINOPHILS ABSOLUTE AUTO 0.26 K/mm3 (0.00-0.68); EOSINOPHILS PERCENT AUTO 4 % (0-6); Hemoglobin 14.2 g/dL (13.5-17.5); IMMATURE GRAN ABSOLUTE AUTO 0.03 K/mm3 (0.00-0.10); IMMATURE GRAN PERCENT AUTO 1 % (0-1); LYMPHOCYTES ABSOLUTE AUTO 1.39 K/mm3 (0.84-5.20); LYMPHOCYTES PERCENT AUTO 22 % (21-46); MONOCYTES ABSOLUTE AUTO 0.81 K/mm3 (0.16-1.47); MONOCYTES PERCENT AUTO 13 % (4-13); Mean Corpuscular HGB 29.3 pg (26.0-34.0); Mean Corpuscular HGB Conc 34.6 g/dL (31.5-36.5); Mean Corpuscular Volume 85 fL (80-100); Mean Platelet Volume 9.2 fL (9.1-12.4); NEUTROPHILS ABSOLUTE AUTO 3.94 K/mm3 (1.96-9.15); NEUTROPHILS PERCENT AUTO 61 % (41-73); NRBC ABSOLUTE 0.02 K/mm3 (0.00-0.02); NRBC Auto 0.3 /100 WBC (0.0-0.2); Platelet Count 145 K/mm3 (150-400); RDW Coefficient Variation 18.6 % (11.7-14.2); RDW Standard Deviation 55.1 fL (35.1-46.3); Red Blood Cell Count 4.85 M/mm3 (4.30-5.90); White Blood Cell Count 6.48 K/mm3 (4.00-11.30)
[2022-11-04 04:29] LABS: Bun/Creatinine Ratio 35.9 (12.0-20.0); Calcium, Blood 8.9 mg/dL (8.5-10.1); Creatinine, Blood 1.03 mg/dL (0.60-1.20); Potassium, Blood 4.9 mmol/L (3.5-5.5)
[2022-11-04 04:41] LABS: International Normalized Ratio 4.75
--- NOTE | 2022-11-04 04:59 | NUR ---
SHIFT SUMMARY: PT ALERT AND ORIENTED X4, ABLE TO FOLLOW COMMANDS AND MAKE NEEDS KNOWN. BP STABLE, HR SR 90'S, AFEBRILE, SATS >96% ON ROOM AIR. CALL RECEIVED FROM DR. ASHBY AT APPROX 0000. ORDERS TO D/C LASIX AND START NS GTT @75ML/HR. BNP NOTED TO BE 2400+ ON ADMISSION, MADE AWARE. APPROX 0300, THIS RN CALLED TO PT ROOM, PT COMPLAINING OF INCREASING SOB SAYS "IT FEELS LIKE HIS LUNG ARE FILLING UP." LUNG SOUNDS WITH INCREASED WHEEZES. CALL PLACED TO NOC RESIDENT, ORDERES RECEIVED TO PUT NS ON STANDBY AND REEVALUATE BY DAYTIME TEAM. NA+ 120 THIS AM, ORDERS RECEIVED FOR SODIUM TABLET, SEE EMAR. PT IND TO AND FROM BATHROOM. BED IN LOW, CALL LIGHT IN REACH, WILL REPORT TO ONCOMING RN.
--- NOTE | 2022-11-04 07:22 | NUR ---
ASSUMED CARE: PT RESTING QUIETLY AT THIS TIME. NSR AT 89. FLUIDS ON SB PER DR VELAZQUEZ INSTRUCTIONS. WILL DISCUSS WITH DAY SHIFT DR. NO ACUTE NEEDS AT THIS TIME.
--- NOTE | 2022-11-04 11:21 | NUR ---
REPORT GIVEN TO TANJA NARVAEZ. RN AWARE THAT WE ARE WAITING FOR CARDIOLOGY CONSULT FOR PT REGARDING CHF MANAGEMENT AND THROMBUS. PT AWARE THAT THIS IS WHAT WE ARE WAITING FOR BEFORE HE DISCHARGES TO HOME. PT ESCORTED TO ROOM 362 VIA GURNEY. NO FURTHER NEEDS OR CONCERNS AT THIS TIME.
--- NOTE | 2022-11-04 14:35 | NUR ---
DR. ASHBY CALLED BY THIS RN. AND ORDERED GIVEN TO DC FLUID ORDER AND TO ORDER A BMP FOR 1600 TO RECKECK NA+. PATIENT IS IN BED SLEEPING AT THIS TIME. HE REFUSED TO WORK MEANINGFULLY WITH PT THIS AFTERNOON. VISITORS AT THE BEDSIDE. STILL WAITING FOR CONSTRUCTION AND MAINTENANCE INSPECTOR TO SEE PATIENT. DR. ASHBY STATED THAT HE PLANS TO SEE THE PATIENT LATER IN THE DAY.
[2022-11-04 16:47] LABS: Bun/Creatinine Ratio 33.6 (12.0-20.0); Calcium, Blood 9.4 mg/dL (8.5-10.1); Creatinine, Blood 1.13 mg/dL (0.60-1.20); Potassium, Blood 5.1 mmol/L (3.5-5.5)
--- NOTE | 2022-11-04 17:42 | NUR ---
DR. ASHBY NOTIFIED OF PATIENT'S NA+ RESULT OF 121. ORDERED SODIUM CHLORIDE TABLETS TID. DR. ASHBY NOTIFIED THAT CARDIOLOGY HAS NOT BEEN BY TO SEE THE PATIENT TODAY AND HE ASKED THAT WE CALL IN THE CONSULT AGAIN TOMORROW MORNING 11/05/22. DR. BLACK CALLED ON HIS CELL PHONE TONIGHT 11/04/22 AT 1740 TO ASK IF HE WAS GOING TO SEE THE PATIENT TONIGHT, DR. BLACK STATED THAT HE WAS TOO BUSY TONIGHT TO SEE THAT PATIENT AND ASKED IF THE PATIENT WAS STABLE TO WHICH THE RN ANSWERED "YES" AND ASKED THAT THE CONSULT BE CALLED IN TOMORROW MORNING. WILL PASS THIS INFORMATION ON TO ONCOMING RN.
--- NOTE | 2022-11-05 04:32 | NUR ---
SHIFT SUMMARY NOC PT A/O X 4. DR. ASHBY WAS AT BEDSIDE DURING SHIFT CHANGE AND ORDERED 40 MG LASIX IV X 1 WELL SODIUM CHLORIDE TABLET TO INCREASE PT NA+ LEVEL. PT IS ON TELE RUNNING SINUS RHYTHM @ 77 BPM. PT SLEPT DURING ENTIRETY OF SHIFT EXCEPT TO USE CALL LIGHT TWICE FOR SBA TO BATHROOM. PT WAS PLEASANT AND COOPERATIVE TO CARE. PREVIOUS SHIFT PASSED ALONG TO RECALL DR. LAKE'S (DESIGN PRINTER BALLOON) TOMMOROW FOR CONSULT. PALLIATIVE CARE ALSO HAS A CONSULT BUT ARE WAITING ON RESULTS OF CARDIOLOGY CONSULT BEFORE MOVING FORWARD. PT INR WAS ELEVATED AT 4.75 AND WARFARIN WAS HELD DURING DAY SHIFT. PT IS CURRENTLY RESTING WITH BED IN LOWEST POSITION, AND CALL LIGHT WITHIN REACH. WCTM.
[2022-11-05 07:21] LABS: BASOPHILS ABSOLUTE AUTO 0.02 K/mm3 (0.00-0.23); BASOPHILS PERCENT AUTO 0 % (0-2); EOSINOPHILS ABSOLUTE AUTO 0.08 K/mm3 (0.00-0.68); EOSINOPHILS PERCENT AUTO 1 % (0-6); Hemoglobin 13.3 g/dL (13.5-17.5); IMMATURE GRAN ABSOLUTE AUTO 0.04 K/mm3 (0.00-0.10); IMMATURE GRAN PERCENT AUTO 1 % (0-1); LYMPHOCYTES ABSOLUTE AUTO 0.96 K/mm3 (0.84-5.20); LYMPHOCYTES PERCENT AUTO 15 % (21-46); MONOCYTES ABSOLUTE AUTO 0.69 K/mm3 (0.16-1.47); MONOCYTES PERCENT AUTO 11 % (4-13); Mean Corpuscular HGB Conc 35.9 g/dL (31.5-36.5); Mean Corpuscular Volume 81 fL (80-100); Mean Platelet Volume 9.3 fL (9.1-12.4); NEUTROPHILS ABSOLUTE AUTO 4.61 K/mm3 (1.96-9.15); NEUTROPHILS PERCENT AUTO 72 % (41-73); Platelet Count 157 K/mm3 (150-400); RDW Coefficient Variation 18.2 % (11.7-14.2); RDW Standard Deviation 50.6 fL (35.1-46.3); Red Blood Cell Count 4.58 M/mm3 (4.30-5.90)
[2022-11-05 07:37] LABS: Bun/Creatinine Ratio 32.5 (12.0-20.0); Calcium, Blood 8.8 mg/dL (8.5-10.1); Creatinine, Blood 1.26 mg/dL (0.60-1.20); Potassium, Blood 4.6 mmol/L (3.5-5.5)
[2022-11-05 07:41] LABS: International Normalized Ratio 3.31; Prothrombin Time Results 32.1 Sec (9.7-11.5)
[2022-11-05 16:24] LABS: Bun/Creatinine Ratio 35.9 (12.0-20.0); Calcium, Blood 8.7 mg/dL (8.5-10.1); Creatinine, Blood 1.17 mg/dL (0.60-1.20); Potassium, Blood 4.1 mmol/L (3.5-5.5); Prolactin 16.9 ng/mL (2.5-17.4); Thyroid Stimulating Hormone 5.83 uIU/mL (0.360-4.800)
--- NOTE | 2022-11-05 16:32 | NUR ---
Review of patient with nursing stating he wants to go home. Met with patient he is dressed and sitting at bedside. Careful slow conversation. pt having difficulty tracking and repeats himself. slowly discussed his risk of having a sudden cardiac event. He states his dauhgters work in [employer] and can care for him. pt not tracking conversation so ended interaction. Pt kept pulling conversation back to his family can care for him. He speaks well and highly of his children. He complains that the daoctors are telling him different things and he cant keep up. He thinks the one told melody to go home one wants his to stay. His daughter is coming in to talk to him and convince him to stay. She fears he will come right back. They also all work and worry about him being alone. He thinks if he goes on hospice he has reji stay home in bed. Daughter is going to try to get him to stay til monday so they can sort out a plan or start hospice.
--- NOTE | 2022-11-05 17:03 | NUR ---
daughter in repeat conversation with patient. He will not stay, daughter spoke with him and son spoke with him on phone. He is fearing passing in hospital. Extensive conversation with pt son. He understands his father is getting less capable menatlly and more aggitated and talking about more. Pt son stated dr mac review with him and the family he could pass suddenly and he is at end stage with his disease. Son is understanding dr may not discharge he will have to [facility] . they will take him home and will accept hospice consutal. physician notified hospice consult initiated. again reenforeced risks. pt high risk for return to ER.
--- NOTE | 2022-11-05 17:20 | NUR ---
PATIENT LEFT HOSPITAL AMA, ACCOMPANIED BY HIS DAUGHTER. Naren MATOS RN WITH PALLIATIVE CARE HAD BERNARDA DISCUSSION WITH PATIENT AND DAUGHTER ABOUT GOALS OF CARE AND HOSPICE. PATIENT TOLD HIS DAUGHTER HE DIDN'T WANT TO IN THE HOSPITAL, HE WANTED TO BE WITH HIS FAMILY AND AT HOME. VERBALIZED UNDERSTANDING OF RISKS AND BENEFITS LAID OUT ON AMA FORM; SIGNED FORM AT 1706. OFF UNIT VIA W/C AT 1712. NO PERSONAL BELONGINGS LEFT BEHIND IN ROOM. TANJA MATOS NOTIFIED DR. ASHBY.
--- NOTE | 2022-11-06 21:17 | NUR ---
CALLED AND SPOKE WITH PT'S SON CHRYSTAL LADD REGARDING [facility] LEFT BEHIND. HE WILL SPEAK WITH HOSPICE AND SEE IF THEY STILL NEED THE MED OR NOT AND CALL US BACK.
== END 2022-11-05 17:13 | disposition left against medical advice (07) | DRG 291 ==
LOC: ER 17:45 → PCU 17:46 → MEDS 11-03 16:30 → PCU 11-03 16:30 → MEDS 11-04 11:15
PROVIDERS: Family Medicine; Internal Medicine; Student in an Organized Health Care Education/Training Program; ADMIT Internal Medicine
DX: I11.0 Hypertensive heart disease with heart failure (principal); I50.23 Acute on chronic systolic (congestive) heart failure; Q21.12 Patent foramen ovale; E87.1 Hypo-osmolality and hyponatremia; E27.40 Unspecified adrenocortical insufficiency; Z66 Do not resuscitate; Z51.5 Encounter for palliative care; I25.10 Atherosclerotic heart disease of native coronary artery without angina pectoris; E78.5 Hyperlipidemia, unspecified; I51.3 Intracardiac thrombosis, not elsewhere classified; K74.60 Unspecified cirrhosis of liver; J44.9 Chronic obstructive pulmonary disease, unspecified; F17.210 Nicotine dependence, cigarettes, uncomplicated; E87.5 Hyperkalemia; Z86.73 Personal history of transient ischemic attack (TIA), and cerebral infarction without residual deficits; Z79.899 Other long term (current) drug therapy
CPT/HCPCS: 36415; 71045; 71046; 80048; 80053; 83880; 83930; 84146; 84443; 85025; 85610; 93005; 93010; 94760; 96372; 96372-59; 96374; 97162; 97165; 97530; 99285-25; A9270; G0378; J1650; J1940; J7030